=== PATIENT | female | born 1975 | race Caucasian/White ===

== ENCOUNTER 2019-08-11 17:19 | Inpatient (IN) | payer OTHER ==
[2019-08-11] VITALS (11 sets, daily range): BP systolic 107–146; BP diastolic 67–87
[~2019-08-11] VITALS: Ht 172.7 cm; Wt 90.3 kg
[~2019-08-11 17:19] MED LIST: LEXAPRO 10 MG T10 M1 PO; XANAX 0.5 MG0.5 MG PO
[2019-08-11 17:34] LABS: ABSOLUTE NEUTROPHILS 4.3 thou/uL (1.4-8.2); BASOPHILS 1.1 % (0.0-2.0); HEMATOCRIT 39.3 % (37.0-47.0); HEMOGLOBIN 12.6 gm/dL (12.0-15.0); LYMPHOCYTES 42.8 % (24.0-44.0); MCH 26.1 pg (26.0-34.0); MCV 81.7 fL (80.0-100.0); PLATELET COUNT 391 thou/uL (150-400); POLYS 48.1 % (36.0-66.0); RBC 4.81 mil/uL (4.20-5.00); WBC 8.9 thou/uL (4.0-11.0)
[2019-08-11 17:44] LABS: ANION GAP 12 mmol/L (7-16); BUN 17 mg/dL (7-18); CALCIUM 8.8 mg/dL (8.5-10.1); CHLORIDE 101 mmol/L (98-107); CO2 21 mmol/L (21-32); GLUCOSE 99 mg/dL (74-106); POTASSIUM 3.5 mmol/L (3.5-5.1); SODIUM 134 mmol/L (136-145)
[2019-08-11 17:49] LABS: PROTIME 9.9 Seconds (9.3-11.4)
[2019-08-11 17:54] LABS: ALBUMIN 3.9 g/dL (3.4-5.0); MAGNESIUM 2.2 mg/dL (1.8-2.4); SGOT 20 U/L (15-37); SGPT 43 U/L (30-65); TOTAL BILIRUBIN 0.2 mg/dL (<0.1-1.0); TOTAL PROTEIN 7.7 g/dL (6.4-8.2); TROPONIN-I <0.06 ng/mL (<0.06)
[2019-08-11 18:14] LABS: URINE BILIRUBIN NEGATIVE (Negative); URINE BLOOD NEGATIVE (Negative); URINE CLARITY CLEAR; URINE COLOR YELLOW; URINE GLUCOSE-RANDOM* NEGATIVE (Negative); URINE KETONES NEGATIVE (Negative); URINE LEUKOCYTES-REFLEX NEGATIVE (Negative); URINE NITRITE-REFLEX NEGATIVE (Negative); URINE PROTEIN (DIPSTICK) NEGATIVE (Negative); URINE SPECIFIC GRAVITY >= 1.030 (1.005-1.035); URINE UROBILINOGEN 0.2 E.U./dl (0.2-1.0)
[2019-08-11 18:21] LABS: AMP/METHAMP Negative (Negative); BARBITURATES Negative (Negative); BENZODIAZEPINES Negative (Negative); COCAINE Negative (Negative); METHADONE Negative (Negative); OPIATES Negative (Negative); PCP Negative (Negative)
[2019-08-11] MEDS ORDERED: BUPROPION XL300 MG PO (21:17)
[2019-08-11] MEDS ORDERED: TOPAMAX100 MG PO (21:18)
--- NOTE | 2019-08-11 21:51 | NUR ---
Pt admitted from ED, she is alert and oriented, with mild expressive dysphagia noted, she moves all extremities and denies any discomfort or numbness to right hand. Her daughter was at the bedside to assist with the admission. Her assessment is benign, heart tones are normal, S1-S2, no edema, +pulses, CHRIS, is taking ice chips well, no signs of aspiration noted. LCTA, on room air. Bowel sounds are present, LBM is 08/11/19. Current NIH is 2 for her speech difficulties. Pt had her meds on her phone, see med rec. Vitals are stable. The bed is in the low/locked position, call light is within reach, will continue to monitor. Care plan initiated.
[2019-08-12] VITALS (27 sets, daily range): BP systolic 91–129; BP diastolic 54–83
--- NOTE | 2019-08-12 07:33 | EKG ---
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 : 1975 Requested By: Waylon Saenz Order Number: [id number] MD: Yunior Min Measurements Intervals Marshall Rate: 93 P: 51 TX: 137 QRS: 5 QRSD: 91 T: 94 QT: 395 QTc: 492 Interpretive Statements Sinus rhythm Nonspecific T abnormalities, lateral leads Borderline prolonged QT interval Compared to ECG 11/15/2014 13:12:35 No significant change was found Electronically Signed On 08-12-2019 7:32:57 DRY CAN TENDER by Yunior Min [email or web address] <ELECTRONICALLY SIGNED> By: Yunior Min MD, [facility] 08/12/19 0732 45 45 Yunior Min MD, [facility] /EPI
--- NOTE | 2019-08-12 08:17 | NUR ---
See TPA flowsheet for vital signs, and neuro check. NIH scored a 1, as speech words appropriate but delayed, delibrate speech pattern. Voice hoarse/whisper, not slurred. Up to BSC -gait steady. Dr Sidhu phoned in to check on patient, update given. Orders for MRI received.
--- NOTE | 2019-08-12 09:10 | NUR ---
NIHSS-1, SPEECH DELAYED AND PURPOSEFUL WHEN READING PHRASES/SENTENCES. ALERT/ORIENTED X 4, COOPERATIVE, PLEASANT. PT STATING, "I HAVE A HEADACHE FROM NO CAFFIENE". R SIDED TEMPORAL HEADACHE 10/26. SR, FAMILY AT BEDSIDE PROVIDING SUPPORT. DR. ZACARIAS PRESENT. PT TO MRI PER WHEELCHAIR.
--- NOTE | 2019-08-12 10:00 | NUR ---
RETURNED FROM MRI PER WHEELCHAIR. FAMILY AT BEDSIDE PROVDING SUPPORT.
--- NOTE | 2019-08-12 10:35 | NUR ---
Chart reviewed and case discussed with the care team. Pt is currently in the ICU s/p TPA d/t expressive aphasia. Pt just back from MRI and up ad umu in the room. Pt was working and indep prior to admission. She has supportive family and insurance in place for f/u care. Stroke workup negative so far. No cm interventions indicated at this time. Will remain available should dc needs arise.
[2019-08-12 13:57] LABS: HEMATOCRIT 36.1 % (37.0-47.0); HEMOGLOBIN 11.6 gm/dL (12.0-15.0); MCH 26.2 pg (26.0-34.0); MCHC 32.1 g/dL (28.0-37.0); MCV 81.7 fL (80.0-100.0); RBC 4.42 mil/uL (4.20-5.00); WBC 7.5 thou/uL (4.0-11.0)
[2019-08-12 14:03] LABS: CALCIUM 8.6 mg/dL (8.5-10.1); CREATININE 0.9 mg/dL (0.6-1.0); POTASSIUM 3.5 mmol/L (3.5-5.1)
[2019-08-12 14:11] LABS: CHOLESTEROL 223 mg/dL (<200); HDL CHOLESTEROL 48 mg/dL (>40); LDL CHOLESTEROL 152 mg/dL (<100); TC:HDL 4.6 Ratio (Not establshd); TRIGLYCERIDE 117 mg/dL (<150); VLDL 23 mg/dL (<40)
--- NOTE | 2019-08-12 14:26 | NUR ---
RELATED TO PT HAVING EXPRESSIVE APHASIA, HE ORDERED SPEECH EVALUATION PER SPEECH DEPARTMENT. FAMILY PREVIOUSLY EXPRESSED CONCERNS REGARDING PT NOT EATING SINCE HOSPITAL ARRIVAL. EXPLAINED RISKS VS BENEFITS OF NOT EATING UNTIL EVALUATED BY SPEECH. INSISTING TIMES FOR ORDERED TESTS. NOTIFIED JOSE G ICU AIR EXPORT AGENT AND SHE SPOKE WITH THE FAMILY ALSO. DR. BAÑUELOS PRESENT TO SEE PT AND SPEAK WITH FAMILY REGARDING MRI RESULTS. SPEECH PRESENT, EEG AND LAB DRAW COMPLETED, THEN ECHO WITH BUBBLE STUDY COMPLETED. PT UP TO CHAIR FOR LUNCH. FAMILY MEMBERS IN ROOM PROVIDING SUPPORT.
--- NOTE | 2019-08-12 14:44 | 2DMMODE ---
[facility] [address] [email or web address] [address] 2 D/M-MODE ECHOCARDIOGRAM Name: NINA CEDEÑO Room #: 243-P ADM IN M.R.#: [id number] Admission: 08/11/19 Attend Phys: Judi King Discharge: Date of : 75 Report #: [id number] THIS REPORT FOR: //name// APPROVED REPORT Study performed: 08/12/2019 13:48:25 EXAM: Comprehensive 2D, Doppler, and color-flow Echocardiogram Patient Location: ICU Room #: 243 Status: routine BSA: 2.04 HR: 80 bpm BP: 99/56 mmHg Rhythm: NSR Other Information Study Quality: Adequate Indications TIA Echo Enhancing Agent Indication: Rule out Shunt Agent(s) / Amount(s) Used: Agitated Saline 6 cc 2D Dimensions RVDd: 21.43 mm IVSd: 10.51 (7-11mm) LVOT Diam: 22.93 (18-24mm) LVDd: 39.92 mm PWd: 9.96 (7-11mm) Ascending Ao: 27.11 (22-36mm) LVDs: 33.91 (25-40mm) Aortic Root: 27.30 mm IVC: 14.00 mm Volumes Left Atrial Volume (Systole) Single Plane 4CH: 21.98 mL Single Plane 2CH: 39.67 mL LA ESV Index: 16.00 mL/m2 Aortic Valve AoV Peak Willie.: 1.00 m/s AO Peak Gr.: 4.01 mmHg LVOT Max P.59 mmHg LVOT Max V: 0.80 m/s CHELSIE Vmax: 3.32 cm2 [facility] [address] [address] 2 D/M-MODE ECHOCARDIOGRAM Name: NINA CEDEÑO Room #: 243-P [facility] IN ..#: [id number] Admission: 08/11/19 Attend Phys: Judi King Discharge: Date of : 75 Report #: [id number] Mitral Valve E/A Ratio: 1.3 MV Decel. Time: 175.62 ms MV E Max Willie.: 0.60 m/s MV A Willie.: 0.47 m/s MV PHT: 50.93 ms IVRT: 114.19 ms Pulmonary Valve PV Peak Willie.: 0.75 m/s PV Peak Gr.: 2.23 mmHg Pulmonary Vein P Vein S: 0.58 m/s P Vein A: 0.24 m/s P Vein D: 0.45 m/s P Vein A Dur.: 147.6 msec P Vein S/D Ratio: 1.29 Tricuspid Valve RAP Estimate: 5.00 mmHg Left Ventricle The left ventricle is normal size. There is normal LV segmental wall motion. There is normal left ventricular wall thickness. The left ventricular systolic function is normal. The left ventricular ejection fraction is within the normal range. LVEF 55%. The left ventricular diastolic function is normal. Right Ventricle The right ventricle is normal size. The right ventricular systolic function is normal. Atria The left atrium size is normal. No shunting by contrast bubble injection. The right atrium size is normal. Aortic Valve The aortic valve is normal in structure. No aortic regurgitation is present. There is no aortic valvular stenosis. Mitral Valve The mitral valve is normal in structure. There is no mitral valve regurgitation noted. No evidence of mitral valve stenosis. Tricuspid Valve The tricuspid valve is normal in structure. There is no tricuspid valve regurgitation noted. Unable to assess PA pressure. [facility] [address] [place] [address] 2 D/M-MODE ECHOCARDIOGRAM Name: NINA CEDEÑO Room #: [facility] IN M.R.#: [id number] Admission: 08/11/19 Attend Phys: Judi King Discharge: Date of : 75 Report #: [id number] Pulmonic Valve The pulmonary valve is normal in structure. Trace pulmonic regurgitation. Great Vessels The aortic root is normal in size. IVC is normal in size and collapses >50% with inspiration. Pericardium There is no pericardial effusion. <Conclusion> 1. Normal echocardiogram with Doppler. Ejection fraction 55%. 2. No shunting by contrast bubble injection. 3. No pericardial effusion <ELECTRONICALLY SIGNED> By: Yunior Min MD, FAC 08/12/19 1444 1444 144 Yunior Min MD, [facility] /INF
--- NOTE | 2019-08-12 17:46 | NUR ---
NEURO STATUS UNCHANGED. SLIGHT SPEECH DELAY, DELIBERATE ESPECIALLY WHEN READING PHRASES/SHORT SENTENCES. NIHSS-1. CONSUMING EVENING MEAL. FAMILY MEMBERS AT BEDSIDE PROVIDING SUPPORT, PT CONSUMED EVENING MEAL. PROGRESSING.
[2019-08-13] VITALS (14 sets, daily range): BP systolic 94–118; BP diastolic 57–81
[2019-08-13] MEDS ORDERED: LIPITOR 20 MG T20 M1 PO (09:51)
[2019-08-13] MEDS ORDERED: ASA81BEC PO (09:52)
--- NOTE | 2019-08-13 11:25 | NUR ---
NIHSS-0. FLAT EFFECT RESOLVED, INTERMITTENT SMILING WITH A OCCASIONAL LAUGH. SR, ROOOM AIR, TOLERATING MEAL, VOIDS PER BSC. STANDBY ASSIST WHEN AMBULATING TO TOILET, STEADY GAIT. DR. ZACARIAS AND DR. BAÑUELOS PRESENT TO SEE PT AND FAMILY PRESENT ALSO. DISCUSSED, FINALIZED DISCHARGE PLANS. DISCHARGE INSTRUCTIONS GIVEN, NEW MEDICATION INFO GIVEN, NEW SCRIPTS SENT TO HER PHARMACY FOR PICKUP. SEE DISCHARGE INSTRUCTIONS FOR DETAILS.
--- NOTE | 2019-08-21 13:29 | HC ---
[facility] [address] CONSULTATION Name: NINA CEDEÑO Room #: [facility] IN M.R.#: [id number] Admission: 08/11/19 Attend Phys: Esvin Arguello MD Discharge: 08/13/19 Date of : 75 Report #: [id number] THIS REPORT FOR: //name// CC: Esvin Arguello [facility] physician/PCP Rick Siduh DATE OF SERVICE: 08/11/2019 HISTORY OF PRESENT ILLNESS: This 44-year-old female patient who had an acute onset of speech difficulty, which has progressed. It is purely expressive aphasia because she is able to follow commands reasonably well. She has no headache associated with it. There was no trauma preceding it. She does have a history of anxiety, but she never had symptoms like this before. The main thing when she gets anxiety is that she cries. She does not have too many vascular risk factors like diabetes, hypertension as I understand from the family. She does not have any focal neurological deficit. REVIEW OF SYSTEMS: Indicate that she does have a history of anxiety and depression, but she never had symptoms resembling this. PAST MEDICAL HISTORY: Negative for stroke. SOCIAL HISTORY: Not clear. Some of the records says yes about cigarettes, but the family denies that. PHYSICAL EXAMINATION: The patient's examination indicates she is alert. She is responsive. She is not obtunded. She has virtually no speech output. That makes the examination quite difficult, but the best I can tell, there does not appear to be facial palsy. I cannot tell about hemianopsia. She moves all four extremities and strength looks symmetrical. Sensory system examination is difficult to do. Fundus examination also is difficult to do. Cardiac and respiratory examinations appear unremarkable. Blood pressure is running about 146/87, pulse is 90, temperature is 18. She did have a CT scan of the head. CT scan of the head was unremarkable. IMPRESSION: Very difficult to form in this patient. I frankly discussed with the patient and the family that we do not know the diagnosis for sure. I discussed with them that I cannot tell between anxiety and expressive aphasia secondary to CVA. If we run all the test to determine if it is cerebrovascular accident or not, then, time may run out for giving any TPA or at least the TPA will be significantly delayed and its effect is maximum in the early stages. If we do not give TPA and she return to service inspector to be stroke, then we will be exposing her to risk of intracranial bleed, which is debilitating and sometime fatal. The patient has shown no improvement after coming to the hospital and family understand very well that presently is not possible to tell for sure whether it [facility] [address] [place] [address] CONSULTATION Name: NINA CEDEÑO Room #: [facility] IN M.R.#: [id number] Admission: 08/11/19 Attend Phys: Esvin Arguello MD Discharge: 08/13/19 Date of : 75 Report #: [id number] is anxiety and/or stroke. I discussed their options with them. They want the patient to have TPA. They understand that the diagnosis of stroke is not fully established and if we try to do that, then time may run out for giving TPA or it will be delayed. Typically, the recommendation is not to wait if TPA is given and many times we gave TPA on a presumptive diagnosis. That does expose the patient to the risk of bleed. They all think that it is very unusual for the patient to have this kind of symptom and she never had one like this and they want the patient to have TPA. The patient herself understand things the best I can tell and she also looks like want to have TPA. Emergency Room physician is checking for list for any contraindication and plan to give this patient TPA if no contraindication is found. The family was stressed multiple times that the diagnosis is not certain in this patient and they have all the options and the situation is pretty difficult in this patient. We have clearly decided that they do not want any further confirmation by reviewing the test and they want TPA to be administered as soon as possible. As mentioned above ER physician is excluding any contraindication for TPA and trying to arrange that. In the meantime, I did ask them to get a CT angiogram done and that is reasonable as the patient's creatinine is good at 1 and BUN is 17. The patient's records indicate that the patient has a tubal ligation, but I cannot confirm that and wants an official consult is put in for me. I will order some fluid and a test if tubal ligation cannot be confirmed. <ELECTRONICALLY SIGNED> By: Rick Sidhu MD 08/21/19 1329 1831 0045 Rick Sidhu MD /nt
--- NOTE | 2019-08-21 13:30 | EEG ---
[facility] [place] [address] ELECTROENCEPHALOGRAM Name: NINA CEDEÑO Room #: [facility] IN M.R.#: [id number] Admission: 08/11/19 Attend Phys: Esvin Arguello MD Discharge: 08/13/19 Date of : 75 Report #: [id number] THIS REPORT FOR: //name// CC: Esvin Arguello [facility] physician/PCP Rick Sidhu DATE OF SERVICE: 08/12/2019 This patient is being evaluated for altered mental status. Some question of twitching of the eyes had been noticed. EEG was done by placing the electrode by standard 10-20 system of electrode placement. Both referential and sequential montages were used for recording. Background activity in this patient's EEG is about 10 Hz and 30 microvolt. It is a symmetrical activity. The patient became drowsy and that is associated with bilateral slowing. Photic stimulation is unremarkable. Throughout the record, no active epileptiform activity was noticed. IMPRESSION: This patient's EEG is within normal limit. Thank you very much for this referral. <ELECTRONICALLY SIGNED> By: Rick Sidhu MD 08/21/19 1330 1417 1431 Rick Sidhu MD /nt
--- NOTE | 2019-08-21 16:25 | HC ---
[facility] [address] [place] [address] CONSULTATION Name: NINA CEDEÑO Room #: Count includes the [facility] IN M.R.#: [id number] Admission: 08/11/19 Attend Phys: Esvin Arguello MD Discharge: 08/13/19 Date of : 75 Report #: [id number] THIS REPORT FOR: //name// CC: Esvin Arguello [facility] physician/PCP Rick Sidhu DATE OF SERVICE: 08/12/2019 HISTORY OF PRESENT ILLNESS: The patient is a 44-year-old female who was admitted through the Emergency Department with expressive aphasia. She was evaluated by Neurology. Denied any upper or lower extremity numbness, tingling or weakness. She was thought to have a purely expressive aphasia. She appeared to have good receptive abilities. She did receive TPA and she has had improvement in her verbal responses since then. CT of the head was negative. Neurology thought that there may be a component of her prior history of migraine headaches, although she denied any specific headache in association with this. There was also a question as whether there might have been some anxiety that might have contributed. PAST MEDICAL HISTORY: Includes anxiety and tubal ligation. MEDICATIONS: Please see the full medication listing. ALLERGIES: No known drug allergies. SOCIAL HISTORY: Lives alone in an apartment. Premorbid community ambulator, driving and working. She does have an involved daughter. REVIEW OF SYSTEMS: No current complaints of chest pain, shortness of breath or abdominal discomfort. Denies any headache. PHYSICAL EXAMINATION: GENERAL: A 44-year-old female seen in the intensive care unit. She is currently getting ready to undergo an EEG. She is alert, pleasant. She is able to respond with one word statements. Facies are symmetric. EOMs are full. Follows commands without difficulty. No obvious focal weakness of either upper or lower extremities. Tone appeared to be intact. No focal calf swelling. ASSESSMENT: A 44-year-old female with the following problem list: 1. Expressive aphasia. She may have had a stroke with some improvement post-TPA. 2. History of migraine headaches, which may be a contributing factor. 3. History of anxiety. PLAN: The patient is continuing with their evaluation in the ICU. Currently [facility] [address] [place] [address] CONSULTATION Name: NINA CEDEÑO Room #: 243-P [facility] IN M.R.#: [id number] Admission: 08/11/19 Attend Phys: Esvin Arguello MD Discharge: 08/13/19 Date of : 75 Report #: [id number] undergoing EGD. Therapy will be assessing her regarding her functional mobility and ADLs. We will be glad to follow along with you regarding her rehab therapy needs as she further medically stabilizes. Thank you for asking us to assist in this patient's care. <ELECTRONICALLY SIGNED> By: Jj Mahan MD 08/21/19 1625 1311 1853 Jj Mahan MD /IRV[facility]
== END 2019-08-13 11:25 | disposition home or self-care (01) | DRG 63 ==
LOC: ER 17:19 → ICU 19:35 → EROBS 19:35 → ICU 20:09
PROVIDERS: Emergency Medicine; Internal Medicine; Nurse Practitioner Acute Care; ADMIT Hospitalist
DX: I63.9 Cerebral infarction, unspecified (principal); R47.01 Aphasia; F41.9 Anxiety disorder, unspecified; F17.210 Nicotine dependence, cigarettes, uncomplicated; E78.5 Hyperlipidemia, unspecified; K06.8 Other specified disorders of gingiva and edentulous alveolar ridge; R47.81 Slurred speech; G93.0 Cerebral cysts; G43.909 Migraine, unspecified, not intractable, without status migrainosus; F32.9 Major depressive disorder, single episode, unspecified; Z60.2 Problems related to living alone; Z79.899 Other long term (current) drug therapy; Z28.21 Immunization not carried out because of patient refusal
CPT/HCPCS: 10078